=== PATIENT | male | born 1955 | race Caucasian/White ===

== ENCOUNTER → 2016-10-19 | Outpatient (CLI) | payer MEDICARE, SELFPAY | LOC: RAD 14:08 | DX: M54.5 Low back pain (principal); M47.816 Spondylosis without myelopathy or radiculopathy, lumbar region; M47.814 Spondylosis without myelopathy or radiculopathy, thoracic region | CPT/HCPCS: 72072; 72100 ==

== ENCOUNTER 2022-01-25 17:50 | Emergency (ER) | payer MEDICARE | END 2022-01-25 19:58 | disposition home or self-care (01) | LOC: ER1 17:50 | DX: L72.9 Follicular cyst of the skin and subcutaneous tissue, unspecified (principal); F17.210 Nicotine dependence, cigarettes, uncomplicated | CPT/HCPCS: 99283 ==

== ENCOUNTER → 2022-02-22 | Outpatient (CLI) | payer MEDICARE ==
[~2022-02-22] MED LIST: BUPRENORPHIN-N1 EACH SL
== END ==
LOC: OPSV2 10:00
DX: Z01.810 Encounter for preprocedural cardiovascular examination (principal); L02.31 Cutaneous abscess of buttock
CPT/HCPCS: 93005

== ENCOUNTER → 2022-02-27 | Day surgery (SDC) | payer MEDICARE ==
[2022-02-27 09:15] LABS: BUN/CREATININE RATIO 27 (0-10)
== END | disposition home or self-care (01) ==
LOC: OR 07:31
PROVIDERS: Anesthesiology; Surgery
PROC: 0HB8XZZ Excision of Buttock Skin, External Approach (ICD-10-PCS; principal; 2022-02-27 10:20)
DX: L98.8 Other specified disorders of the skin and subcutaneous tissue (principal); L02.31 Cutaneous abscess of buttock; E11.9 Type 2 diabetes mellitus without complications; F17.210 Nicotine dependence, cigarettes, uncomplicated; J44.9 Chronic obstructive pulmonary disease, unspecified; Z79.84 Long term (current) use of oral hypoglycemic drugs; Z79.899 Other long term (current) drug therapy
CPT/HCPCS: 36415; 80048; 82962; 88341; 88342; 94664; J1100; J1885; J2001; J2250; J2405; J2704; J3010